=== PATIENT | female | born 1990 | race Caucasian/White ===

== ENCOUNTER 2017-08-30 21:58 | Inpatient (IN) | payer BC ==
[2017-08-31] MEDS ORDERED: Sodium Chloride 0.9% 2.5 ML Syringe FLUSH PRN (02:49)
[2017-08-31] MEDS ORDERED: Tranexamic Acid 1,000 MG in Sodium Chloride 0.9% 100 ML IV PRN (02:49)
[2017-08-31] MEDS ORDERED: Water For Irrigation,Sterile 1,000 ML Container IRR PRN (02:49)
[2017-08-31] MEDS ORDERED: Lidocaine 1% 50 ML MDV INJECT PRN (02:49)
[2017-08-31] MEDS ORDERED: Nalbuphine 10 MG/1 ML Vial IVPUSH PRN (02:49)
[2017-08-31] MEDS ORDERED: Misoprostol 200 MCG Tab PO PRN (02:49)
[2017-08-31] MEDS ORDERED: Carboprost Tromethamine 250 MCG/1 ML Amp IM PRN (02:49)
[2017-08-31] MEDS ORDERED: Sodium Chloride 0.9% 10 ML Syringe FLUSH PRN (02:49)
[2017-08-31] MEDS ORDERED: Butorphanol 1 MG/ML SDV IVPUSH PRN (02:49)
[2017-08-31] MEDS ORDERED: Methylergonovine 0.2 MG/1 ML Amp IM PRN (02:49)
[2017-08-31] MEDS ORDERED: Oxytocin/0.9 % Sodium Chloride 30 UNIT/500 ML BAG IV SCH (03:00)
[2017-08-31] MEDS ORDERED: Ampicillin 2 GM in Sodium Chloride 0.9% 100 ML IV ONE (03:00)
[2017-08-31] MEDS: Lactated Ringers 1,000 ML IV SCH ×3 (03:19→08:40)
[2017-08-31] MEDS: Ampicillin 1 GM in Sodium Chloride 0.9% 50 ML IV SCH ×2 (06:59→11:03)
[2017-08-31] MEDS ORDERED: Ampicillin 1 GM in Sodium Chloride 0.9% 50 ML IV SCH (07:00)
[2017-08-31] MEDS ORDERED: Ropivacaine 0.2% 2 MG/ML 20 ML SDV ONE (07:32)
--- NOTE | 2017-08-31 08:03 | PCM.PREANE ---
Preanesthetic Assessment - Procedure Proposed Procedure: labor epidural - Anesthesia/Transfusion/Family Hx Anesthesia History: No Prior Anesthesia Family History of Anesthesia Reaction: No Transfusion History: No Prior Transfusion(s) - Review of Systems Other: Reports: None - Physical Assessment Height: 5 ft 2.5 in Weight: 72.575 kg ASA Class: 2 Mental Status: Alert & Oriented x3 Airway Class: Mallampati = 1 Dentition: Reports: Normal Dentition Thyro-Mental Finger Breadths: 3 Mouth Opening Finger Breadths: 3 ROM/Head Extension: Full - Lab Values: Laboratory Last Values WBC 12.10 K/uL (4.0-11.0) H 08/31/17 03:05 RBC 3.74 M/uL (4.30-5.90) L 08/31/17 03:05 Hgb 11.3 g/dL (12.0-16.0) L 08/31/17 03:05 Hct 33.2 % (36.0-46.0) L 08/31/17 03:05 MCV 88.8 fL (80.0-98.0) 08/31/17 03:05 MCH 30.2 pg (27.0-32.0) 08/31/17 03:05 MCHC 34.0 g/dL (31.0-37.0) 08/31/17 03:05 RDW Std Deviation 40.0 fl (28.0-62.0) 08/31/17 03:05 RDW Coeff of [place]rais 13 % (11.0-15.0) 08/31/17 03:05 Plt Count 186 K/uL (150-400) 08/31/17 03:05 MPV 10.30 fL (7.40-12.00) 08/31/17 03:05 Urine Color YELLOW 08/30/17 23:10 Urine Appearance CLEAR 08/30/17 23:10 Urine pH 7.0 (5.0-8.0) 08/30/17 23:10 Ur Specific [place] <= 1.005 (1.001-1.035) 08/30/17 23:10 Urine Protein NEGATIVE mg/dL (NEGATIVE) 08/30/17 23:10 Urine Glucose (UA) NEGATIVE mg/dL (NEGATIVE) 08/30/17 23:10 Urine Ketones NEGATIVE mg/dL (NEGATIVE) 08/30/17 23:10 Urine Occult Blood NEGATIVE (NEGATIVE) 08/30/17 23:10 Urine Nitrite NEGATIVE (NEGATIVE) 08/30/17 23:10 Urine Bilirubin NEGATIVE (NEGATIVE) 08/30/17 23:10 Urine Urobilinogen 0.2 EU/dL (<2.0) 08/30/17 23:10 Ur Leukocyte Esterase NEGATIVE (NEGATIVE) 08/30/17 23:10 Blood Type O POSITIVE 08/31/17 03:05 Antibody Screen NEGATIVE 08/31/17 03:05 - Allergies Allergies/Adverse Reactions: Allergies Allergy/AdvReac Type Severity Reaction Status Date / Time No Known Allergies Allergy Verified 08/30/17 22:20 - Blood Blood Available: Yes Product(s) Available: PRBC - Acknowledgements Anesthesia Type Planned: Epidural Pt an Appropriate Candidate for the Planned Anesthesia: Yes Alternatives and Risks of Anesthesia Discussed w Pt/Guardian: Yes Pt/Guardian Understands and Agrees with Anesthesia Plan: Yes PreAnesthesia Questionnaire - Past Health History Medical/Surgical History: Denies Medical/Surgical History [employer] History: Reports: - SUBSTANCE USE Smoking Status *Q: Light Tobacco Smoker Tobacco Use Within Last Twelve Months: Cigarettes Second Hand Smoke Exposure: No Recreational Drug Use History: No - HOME MEDS Home Medications: Home Meds Vits #93/Iron Fum/FA [ Formula Tablet] 1 each PO 08/30/17 [ History] - CURRENT (IN HOUSE) MEDS Current Meds: Current Medications Butorphanol Tartrate (Stadol) 1 mg IVPUSH Q1H PRN PRN Reason: Pain Carboprost Tromethamine (Hemabate Ds) 250 mcg IM ASDIRECTED PRN PRN Reason: Post Hemorrhage Tranexamic Acid 1,000 mg/ (Sodium Chloride) 110 mls @ 660 mls/hr IV ONETIME PRN PRN Reason: Bleeding Lactated Ringer's (Ringers, Lactated) 1,000 mls @ 150 mls/hr IV ASDIRECTED DIANE Last Admin: 08/31/17 06:59 Dose: 150 mls/hr Oxytocin/Sodium Chloride (Oxytocin 30 Unit/500 Ml-Ns) 30 unit in 500 mls @ 999 mls/hr IV TITRATE [facility] Ampicillin Sodium 1 gm/ Sodium (Chloride) 50 mls @ 100 mls/hr IV Q4H [facility] Last Admin: 08/31/17 06:59 Dose: 100 mls/hr Lidocaine HCl (Xylocaine 1%) 50 ml INJECT .ONCE PRN PRN Reason: Laceration repair Methylergonovine Maleate (Methergine) 0.2 mg IM ASDIRECTED PRN PRN Reason: Post Hemorrhage Misoprostol (Cytotec) 200 mcg PO .ONCE PRN PRN Reason: Post Hemorrhage Nalbuphine HCl (Nubain) 10 mg IVPUSH Q1H PRN PRN Reason: Pain (severe 7-10) Sodium Chloride (Saline Flush) 10 ml FLUSH ASDIRECTED PRN PRN Reason: Keep Vein Open Sodium Chloride (Saline Flush) 2.5 ml FLUSH ASDIRECTED PRN PRN Reason: Keep Vein Open Sterile Water (Sterile Water For Irrigation) 1,000 ml IRR ASDIRECTED PRN PRN Reason: delivery Discontinued Medications Ampicillin Sodium 2 gm/ Sodium (Chloride) 100 mls @ 200 mls/hr IV ONETIME ONE Stop: 08/31/17 03:29 Last Admin: 08/31/17 03:19 Dose: 200 mls/hr Ampicillin Sodium 1 gm/ Sodium (Chloride) 50 mls @ 100 mls/hr IV Q4H DIANE Fentanyl/Bupivacaine HCl ([id number]-[id number] 2 Mcg/Ml-0.125%) Confirm Administered Dose 100 mls @ as directed EP .STK-MED ONE Stop: 08/31/17 07:33 Ropivacaine (Naropin 0.2%) Confirm Administered Dose 20 ml .ROUTE .STK-MED ONE Stop: 08/31/17 07:33
[2017-08-31] MEDS ORDERED: oxyCODONE 5 MG Tab PO PRN (14:26)
[2017-08-31] MEDS ORDERED: Witch Hazel Medicated Pads 40/Jar TOP PRN (14:26)
[2017-08-31] MEDS ORDERED: Bisacodyl 10 MG Supp RECTAL PRN (14:26)
[2017-08-31] MEDS ORDERED: Ibuprofen 400 MG Tab PO PRN (14:26)
[2017-08-31] MEDS ORDERED: Benzocaine/Menthol 20%-0.5% Spray 78 GM Cannister TOP PRN (14:26)
[2017-08-31] MEDS ORDERED: Lanolin 100% Cream 7 GM Tube TOP PRN (14:26)
[2017-08-31] MEDS ORDERED: Docusate Sodium 100 MG Cap PO PRN (14:26)
[2017-08-31] MEDS ORDERED: Acetaminophen 500 MG Tab PO PRN ×2 (14:26)
--- NOTE | 2017-08-31 14:31 | PCM.DEL ---
L & D Note - General Info Date of Service: 08/31/17 - Delivery Note Labor: Spontaneous, Augmented by ARM Delivery Outcome: Livebirth Infant Delivery Mode: Spontaneous Presentation: Left Occiput Anterior (SANTANA) Nuchal Cord: Present, Reduced Prep: Other Anesthesia Type: Epidural Episiotomy Type: None Laceration: None Placenta: Intact, Spontaneous Cord: 3 Vessels Estimated Blood Loss: 150 Resuscitation Needed: No [place]: Warmed Score 1 min: 8 Score 5 min: 9 Second Stage Interventions: Reports: Encouragement Given, Pushing Effectively, Pushing, Feet in Foot Rests, Pushing, Pulls Own Legs Back - General Info Date of Service: 08/31/17 - Patient Data Weight - Most Recent: 160 lb Lab Results Last 24 Hours: Laboratory Results - last 24 hr 08/30/17 08/31/17 08/31/17 Range/Units 23:10 03:05 03:05 WBC 12.10 H (4.0-11.0) K/uL RBC 3.74 L (4.30-5.90) M/uL Hgb 11.3 L (12.0-16.0) g/dL Hct 33.2 L (36.0-46.0) % MCV 88.8 (80.0-98.0) fL MCH 30.2 (27.0-32.0) pg MCHC 34.0 (31.0-37.0) g/dL RDW Std Deviation 40.0 (28.0-62.0) fl RDW Coeff of [place]aris 13 (11.0-15.0) % Plt Count 186 (150-400) K/uL MPV 10.30 (7.40-12.00) fL Urine Color YELLOW Urine Appearance CLEAR Urine pH 7.0 (5.0-8.0) Ur Specific [place] <= 1.005 (1.001-1.035) Urine Protein NEGATIVE (NEGATIVE) mg/dL Urine Glucose (UA) NEGATIVE (NEGATIVE) mg/dL Urine Ketones NEGATIVE (NEGATIVE) mg/dL Urine Occult Blood NEGATIVE (NEGATIVE) Urine Nitrite NEGATIVE (NEGATIVE) Urine Bilirubin NEGATIVE (NEGATIVE) Urine Urobilinogen 0.2 (<2.0) EU/dL Ur Leukocyte Esterase NEGATIVE (NEGATIVE) Blood Type O POSITIVE Antibody Screen NEGATIVE Med Orders - Current: Current Medications Discontinued Medications Butorphanol Tartrate (Stadol) 1 mg IVPUSH Q1H PRN PRN Reason: Pain Carboprost Tromethamine (Hemabate Ds) 250 mcg IM ASDIRECTED PRN PRN Reason: Post Hemorrhage Tranexamic Acid 1,000 mg/ (Sodium Chloride) 110 mls @ 660 mls/hr IV ONETIME PRN PRN Reason: Bleeding Ampicillin Sodium 2 gm/ Sodium (Chloride) 100 mls @ 200 mls/hr IV ONETIME ONE Stop: 08/31/17 03:29 Last Admin: 08/31/17 03:19 Dose: 200 mls/hr Lactated Ringer's (Ringers, Lactated) 1,000 mls @ 150 mls/hr IV ASDIRECTED DIANE Last Admin: 08/31/17 08:40 Dose: 150 mls/hr Oxytocin/Sodium Chloride (Oxytocin 30 Unit/500 Ml-Ns) 30 unit in 500 mls @ 999 mls/hr IV TITRATE [facility] Ampicillin Sodium 1 gm/ Sodium (Chloride) 50 mls @ 100 mls/hr IV Q4H [facility] Last Admin: 08/31/17 11:03 Dose: 100 mls/hr Ampicillin Sodium 1 gm/ Sodium (Chloride) 50 mls @ 100 mls/hr IV Q4H [facility] Fentanyl/Bupivacaine HCl ([id number]-Lijlx-Mc 2 Mcg/Ml-0.125%) Confirm Administered Dose 100 mls @ as directed EP .STK-MED ONE Stop: 08/31/17 07:33 Lidocaine HCl (Xylocaine 1%) 50 ml INJECT .ONCE PRN PRN Reason: Laceration repair Methylergonovine Maleate (Methergine) 0.2 mg IM ASDIRECTED PRN PRN Reason: Post Hemorrhage Misoprostol (Cytotec) 200 mcg PO .ONCE PRN PRN Reason: Post Hemorrhage Nalbuphine HCl (Nubain) 10 mg IVPUSH Q1H PRN PRN Reason: Pain (severe 7-10) Ropivacaine (Naropin 0.2%) Confirm Administered Dose 20 ml .ROUTE .STK-MED ONE Stop: 08/31/17 07:33 Sodium Chloride (Saline Flush) 10 ml FLUSH ASDIRECTED PRN PRN Reason: Keep Vein Open Sodium Chloride (Saline Flush) 2.5 ml FLUSH ASDIRECTED PRN PRN Reason: Keep Vein Open Sterile Water (Sterile Water For Irrigation) 1,000 ml IRR ASDIRECTED PRN PRN Reason: delivery - Problem List & Annotations (1) Vaginal delivery SNOMED Code(s): 702506593 Code(s): O80 - ENCOUNTER FOR FULL-TERM UNCOMPLICATED DELIVERY Status: Acute Current Visit: No - Problem List Review Problem List Initiated/Reviewed/Updated: Yes - My Orders Last 24 Hours: My Active Orders 08/31/17 14:13 BLOOD GAS ARTERIAL UMBILICAL [BG] Timed BLOOD GAS VENOUS UMBILICAL [BG] Timed 08/31/17 14:26 Patient Status [ADT] Routine May Shower [RC] ASDIRECTED Up ad Anne-Marie [RC] ASDIRECTED Vital Signs [RC] PER UNIT ROUTINE Acetaminophen [Tylenol Extra Strength] 1,000 mg PO Q4H PRN Acetaminophen [Tylenol Extra Strength] 500 mg PO Q4H PRN Benzocaine/Menthol [Dermoplast Pain Relief 20%-0.5% [place]] 78 gm TOP ASDIRECTED PRN Bisacodyl [Dulcolax] 10 mg RECTAL .ONCE PRN Docusate Sodium [Colace] 100 mg PO BID PRN Ibuprofen [Motrin] 400 mg PO Q4H PRN Ibuprofen [Motrin] 800 mg PO Q6H PRN Lanolin [Lansinoh HPA] See Dose Instructions TOP ASDIRECTED PRN Witch Eduarda [Tucks] 1 pad TOP ASDIRECTED PRN oxyCODONE 5 mg PO Q2H PRN Assess Lochia [WOMSER] Per Unit Routine Assess Uterine Involution [WOMSER] Per Unit Routine Breast Pump [WOMSER] Per Unit Routine Peripheral IV Discontinue [OM.PC] Routine Resuscitation Status Routine 08/31/17 14:27 Perineal Care [OM.PC] Per Unit Routine 08/31/17 Dinner Regular Diet [DIET] 09/01/17 05:11 HEMOGLOBIN/HEMATOCRIT,HH [HEME] Timed
[2017-08-31] MEDS: Ibuprofen 800 MG Tab PO PRN (15:23)
--- NOTE | 2017-08-31 18:01 | OR ---
SURGEON: Marcelina Vinson MD DATE OF PROCEDURE: 08/31/2017 PREOPERATIVE DIAGNOSES: 1. Term at 40 weeks and 3 days gestation. 2. Spontaneous labor. POSTOPERATIVE DIAGNOSES: 1. Term at 40 weeks and 3 days gestation. 2. Spontaneous labor. 3. Delivered. PROCEDURE: Spontaneous vaginal delivery. ANESTHESIA: Epidural. ESTIMATED BLOOD LOSS: 150 mL. COMPLICATIONS: None. DISPOSITION: Mother and baby stable in Labor and delivery room, bonding. FINDINGS: Female infant, weight 4470 g, score 8 and 9 at 1 and 5 minutes respectively. Grossly normal placenta with three-vessel cord. Intact perineum. BRIEF HISTORY: The patient is a 26-year-old G5, P4-0-0-4, who presented overnight in early labor. On examination at about 10:00 p.m. last night, she was 3 to 4 cm dilated, 70% effaced, and -3 station. Niya irregularly. Throughout the night, she then made steady progress received epidural for pain management. After receiving her second dose of ampicillin for GBS prophylaxis, artificial rupture of membranes was performed this morning at about 11:00 a.m. At that time, she was 7 cm dilated, 90% effaced, 0 station with clear amniotic fluid was noted. Thereafter, she progressed to full dilatation and commenced active pushing. heart tracing remained category 1. DESCRIPTION OF PROCEDURE: She had a spontaneous vaginal delivery of a live female infant in left occipital anterior position, loose nuchal cord easily reduced, clear amniotic fluid at delivery. Anterior and posterior shoulder and the rest of the baby were delivered without difficulty. The baby was vigorous and cried spontaneously at . Baby was delivered onto the maternal abdomen. Delayed cord clamping was observed and the cord was subsequently cut. With delivery of the , oxytocin infusion, titration was commenced for active management of third stage of labor. Cord blood and gas samples were obtained. The placenta was delivered by controlled cord traction, appeared to be complete and intact. Examination of the perineum revealed no lacerations. Uterine massage was performed. The uterus was found to be well contracted below the umbilicus. The patient tolerated the procedure well. Sponge, instrument, and needle counts were correct at the end of the delivery. ADUMVIV / MODL /[id number] [facility]
--- NOTE | 2017-08-31 18:39 | PCM48HPAN ---
Post Anesthesia Note - EVALUATION WITHIN 48HRS OF ANESTHETIC Vital Signs in Normal Range: Yes Patient Participated in Evaluation: Yes Respiratory Function Stable: Yes Airway Patent: Yes Cardiovascular Function Stable: Yes Hydration Status Stable: Yes Pain Control Satisfactory: Yes Nausea and Vomiting Control Satisfactory: Yes Mental Status Recovered: Yes
[2017-09-01] MEDS: Ibuprofen 800 MG Tab PO PRN (06:09)
--- NOTE | 2017-09-01 07:16 | PCM.PNPP ---
- General Info Date of Service: 09/01/17 Functional Status: Reports: Pain Controlled, Tolerating Diet, Ambulating, Urinating - Review of Systems General: Denies: Fever HEENT: Denies: Headaches Pulmonary: Denies: Shortness of Breath, Pleuritic Chest Pain, Cough Cardiovascular: Denies: Chest Pain, Palpitations, Dyspnea on Exertion Gastrointestinal: Denies: Abdominal Pain Genitourinary: Denies: Dysuria, Burning, Incontinence, Retention - General Info Date of Service: 09/01/17 - Patient Data Vital Signs - Most Recent: Last Vital Signs Temp 36.9 C 08/31/17 20:00 Pulse 77 08/31/17 20:00 Resp 16 08/31/17 20:00 BP 104/60 08/31/17 20:00 Pulse Ox 100 08/31/17 20:00 Weight - Most Recent: 160 lb Lab Results - Last 24 Hours: Laboratory Results - last 24 hr 08/31/17 09/01/17 Range/Units 14:11 05:15 Hgb 10.7 L (12.0-16.0) g/dL Hct 31.5 L (36.0-46.0) % Cord ABG pH 7.297 (7.18-7.38) Cord ABG Base Excess -3 (-10--2) Cord VBG pH 7.380 (7.25-7.45) Cord VBG Base Excess -3 (-10--2) Med Orders - Current: Current Medications Acetaminophen (Tylenol Extra Strength) 500 mg PO Q4H PRN PRN Reason: Pain Acetaminophen (Tylenol Extra Strength) 1,000 mg PO Q4H PRN PRN Reason: Pain Benzocaine/Menthol (Dermoplast Pain Relief 20%-0.5% [place]) 78 gm TOP ASDIRECTED PRN PRN Reason: Perineal Comfort Measure Last Admin: 08/31/17 15:22 Dose: 1 can Bisacodyl (Dulcolax) 10 mg RECTAL .ONCE PRN PRN Reason: Constipation Docusate Sodium (Colace) 100 mg PO BID PRN PRN Reason: Constipation Emollient Ointment (Lansinoh Hpa) 0 gm TOP ASDIRECTED PRN PRN Reason: Sore Nipples Ibuprofen (Motrin) 400 mg PO Q4H PRN PRN Reason: Pain Ibuprofen (Motrin) 800 mg PO Q6H PRN PRN Reason: Pain Last Admin: 09/01/17 06:09 Dose: 800 mg Oxycodone HCl (Oxycodone) 5 mg PO Q2H PRN PRN Reason: Pain Witch Eduarda (Tucks) 1 pad TOP ASDIRECTED PRN PRN Reason: comfort care Last Admin: 08/31/17 15:22 Dose: 1 tub Discontinued Medications Butorphanol Tartrate (Stadol) 1 mg IVPUSH Q1H PRN PRN Reason: Pain Carboprost Tromethamine (Hemabate Ds) 250 mcg IM ASDIRECTED PRN PRN Reason: Post Hemorrhage Tranexamic Acid 1,000 mg/ (Sodium Chloride) 110 mls @ 660 mls/hr IV ONETIME PRN PRN Reason: Bleeding Ampicillin Sodium 2 gm/ Sodium (Chloride) 100 mls @ 200 mls/hr IV ONETIME ONE Stop: 08/31/17 03:29 Last Admin: 08/31/17 03:19 Dose: 200 mls/hr Lactated Ringer's (Ringers, Lactated) 1,000 mls @ 150 mls/hr IV ASDIRECTED DIANE Last Admin: 08/31/17 08:40 Dose: 150 mls/hr Oxytocin/Sodium Chloride (Oxytocin 30 Unit/500 Ml-Ns) 30 unit in 500 mls @ 999 mls/hr IV TITRATE [facility] Ampicillin Sodium 1 gm/ Sodium (Chloride) 50 mls @ 100 mls/hr IV Q4H [facility] Last Admin: 08/31/17 11:03 Dose: 100 mls/hr Ampicillin Sodium 1 gm/ Sodium (Chloride) 50 mls @ 100 mls/hr IV Q4H [facility] Fentanyl/Bupivacaine HCl (Ivqjxqtk-Kseqp-Wk 2 Mcg/Ml-0.125%) Confirm Administered Dose 100 mls @ as directed EP .STK-MED ONE Stop: 08/31/17 07:33 Lidocaine HCl (Xylocaine 1%) 50 ml INJECT .ONCE PRN PRN Reason: Laceration repair Methylergonovine Maleate (Methergine) 0.2 mg IM ASDIRECTED PRN PRN Reason: Post Hemorrhage Misoprostol (Cytotec) 200 mcg PO .ONCE PRN PRN Reason: Post Hemorrhage Nalbuphine HCl (Nubain) 10 mg IVPUSH Q1H PRN PRN Reason: Pain (severe 7-10) Ropivacaine (Naropin 0.2%) Confirm Administered Dose 20 ml .ROUTE .STK-MED ONE Stop: 08/31/17 07:33 Sodium Chloride (Saline Flush) 10 ml FLUSH ASDIRECTED PRN PRN Reason: Keep Vein Open Sodium Chloride (Saline Flush) 2.5 ml FLUSH ASDIRECTED PRN PRN Reason: Keep Vein Open Sterile Water (Sterile Water For Irrigation) 1,000 ml IRR ASDIRECTED PRN PRN Reason: delivery - Interaction Infant Disposition, : in Room with Family Infant Feeding: Breastfed Infant; Nursed Well Support Person: - Recovery Exam Fundal Tone: Firm Fundal Level: At Umbilicus Fundal Placement: Midline Lochia Amount: Scant Lochia Color: Rubra/Red Bladder Status: Voiding - Exam General: Alert, Oriented Lungs: Clear to Auscultation, Normal Respiratory Effort Cardiovascular: Regular Rate, Regular Rhythm GI/Abdominal Exam: Normal Bowel Sounds Extremities: Non-Tender, Pedal Edema Skin: Warm Psy/Mental Status: Alert, Normal Affect, Normal Mood - Problem List & Annotations (1) Vaginal delivery SNOMED Code(s): 697590349 Code(s): O80 - ENCOUNTER FOR FULL-TERM UNCOMPLICATED DELIVERY Status: Acute Current Visit: No - Problem List Review Problem List Initiated/Reviewed/Updated: Yes - My Orders Last 24 Hours: My Active Orders 08/31/17 14:26 Patient Status [ADT] Routine May Shower [RC] ASDIRECTED Up ad Anne-Marie [RC] ASDIRECTED Vital Signs [RC] PER UNIT ROUTINE Acetaminophen [Tylenol Extra Strength] 1,000 mg PO Q4H PRN Acetaminophen [Tylenol Extra Strength] 500 mg PO Q4H PRN Benzocaine/Menthol [Dermoplast Pain Relief 20%-0.5% [place]] 78 gm TOP ASDIRECTED PRN Bisacodyl [Dulcolax] 10 mg RECTAL .ONCE PRN Docusate Sodium [Colace] 100 mg PO BID PRN Ibuprofen [Motrin] 400 mg PO Q4H PRN Ibuprofen [Motrin] 800 mg PO Q6H PRN Lanolin [Lansinoh HPA] See Dose Instructions TOP ASDIRECTED PRN Witch Eduarda [Tucks] 1 pad TOP ASDIRECTED PRN oxyCODONE 5 mg PO Q2H PRN Assess Lochia [WOMSER] Per Unit Routine Assess Uterine Involution [WOMSER] Per Unit Routine Breast Pump [WOMSER] Per Unit Routine Peripheral IV Discontinue [OM.PC] Routine Resuscitation Status Routine 08/31/17 14:27 Perineal Care [OM.PC] Per Unit Routine 08/31/17 Dinner Regular Diet [DIET] - Assessment Assessment:: PPD#1 s/p , stable and afebrile Clinically stable for discharge - Plan Plan:: Discharge instructions reviewed Nothing in the vagina in 6 weeks Continue PNV and Iron supplements Use OTC pain meds PRN Bleeding and infection precautions reviewed S/S of blues vs depression reviewed Follow up in the clinic in 6 weeks
[2017-09-01 08:19] VITALS: BP 110/74
== END 2017-09-01 16:40 | disposition home or self-care (01) | DRG 560 ==
LOC: MW.OBCHECK 21:58 → MW.OB 22:01 → MW.OBCHECK 08-31 02:49 → MW.OB 08-31 02:49 → OBSVTOIN 08-31 02:49 → MW.OB 08-31 13:09
PROVIDERS: ADMIT Obstetrics & Gynecology; ATTEND Obstetrics & Gynecology
PROC: 10E0XZZ Delivery of Products of Conception, External Approach (ICD-10-PCS; principal; 2017-08-31)
PROC: 10907ZC Drainage of Amniotic Fluid, Therapeutic from Products of Conception, Via Natural or Artificial Opening (ICD-10-PCS; 2017-08-31)
PROC: 3E0S3GC Introduction of Other Therapeutic Substance into Epidural Space, Percutaneous Approach (ICD-10-PCS; 2017-08-31)
DX: O99.824 Streptococcus B carrier state complicating childbirth (principal); Z3A.40 40 weeks gestation of pregnancy; Z37.0 Single live birth; O99.334 Smoking (tobacco) complicating childbirth; F17.210 Nicotine dependence, cigarettes, uncomplicated; Z87.59 Personal history of other complications of pregnancy, childbirth and the puerperium
CPT/HCPCS: 36415; 59025; 59409; 81003; 82803; 85014; 85018; 85027; 86850; 86900; 86901; A9270-GY; J0290; J2795; J7030; J7050; J7120

== ENCOUNTER 2021-04-06 13:09 | Inpatient (IN) | payer BC ==
[2021-04-06] MEDS ORDERED: Tranexamic Acid 1,000 MG in Sodium Chloride 0.9% 100 ML IV PRN (18:05)
[2021-04-06] MEDS ORDERED: Sodium Chloride 0.9% 2.5 ML Syringe FLUSH PRN (18:05)
[2021-04-06] MEDS ORDERED: Methylergonovine 0.2 MG/1 ML Amp IM PRN (18:05)
[2021-04-06] MEDS ORDERED: Water For Irrigation,Sterile 1,000 ML Container IRR PRN (18:05)
[2021-04-06] MEDS ORDERED: Carboprost Tromethamine 250 MCG/1 ML Amp IM PRN (18:05)
[2021-04-06] MEDS ORDERED: Sodium Chloride 0.9% 20 ML SDV IV PRN (18:05)
[2021-04-06] MEDS ORDERED: Misoprostol 200 MCG Tab PO PRN (18:05)
[2021-04-06] MEDS ORDERED: Sodium Chloride 0.9% 10 ML Syringe FLUSH PRN (18:05)
[2021-04-06] MEDS ORDERED: Nalbuphine 10 MG/1 ML Vial IVPUSH PRN (18:05)
[2021-04-06] MEDS ORDERED: Lidocaine 1% 50 ML MDV INJECT PRN (18:05)
[2021-04-06] MEDS ORDERED: Butorphanol 1 MG/ML SDV IVPUSH PRN (18:05)
[2021-04-06] MEDS ORDERED: Oxytocin/0.9 % Sodium Chloride 30 UNIT/500 ML BAG IV SCH (18:15)
[2021-04-06] MEDS ORDERED: Lactated Ringers 1,000 ML IV SCH (18:15)
[2021-04-06] MEDS ORDERED: oxyCODONE 5 MG Tab PO PRN (21:55)
[2021-04-06] MEDS ORDERED: Bisacodyl 10 MG Supp RECTAL PRN (21:55)
[2021-04-06] MEDS ORDERED: Aluminum Hydroxide/Magnesium Hydroxide/Simethicone XS Susp 30 ML Cup PO PRN (21:55)
[2021-04-06] MEDS ORDERED: Benzocaine/Menthol 20%-0.5% Spray 78 GM Cannister TOP PRN (21:55)
[2021-04-06] MEDS ORDERED: Docusate Sodium 100 MG Cap PO PRN (21:55)
[2021-04-06] MEDS ORDERED: Acetaminophen 500 MG Tab PO PRN ×2 (21:55)
[2021-04-06] MEDS ORDERED: Lanolin 100% Cream 7 GM Tube TOP PRN (21:55)
[2021-04-06] MEDS ORDERED: Ibuprofen 400 MG Tab PO PRN (21:55)
[2021-04-06] MEDS ORDERED: Witch Hazel Medicated Pads 40/Jar TOP PRN (21:55)
[2021-04-06] MEDS: Ibuprofen 800 MG Tab PO PRN (23:34)
[2021-04-07] MEDS: Ibuprofen 800 MG Tab PO PRN (07:30)
[2021-04-07 19:59] VITALS: BP 112/74; PULSE 71
== END 2021-04-07 23:24 | disposition home or self-care (01) | DRG 560 ==
LOC: MW.OBCHECK 13:09 → MW.OB 18:05 → OBSVTOIN 21:38 → MW.OB 23:29
PROVIDERS: ADMIT Obstetrics & Gynecology; ATTEND Obstetrics & Gynecology
PROC: 10E0XZZ Delivery of Products of Conception, External Approach (ICD-10-PCS; principal; 2021-04-06)
DX: O48.0 Post-term pregnancy (principal); Z37.0 Single live birth; O77.0 Labor and delivery complicated by meconium in amniotic fluid; Z20.822 Contact with and (suspected) exposure to COVID-19; Z3A.41 41 weeks gestation of pregnancy
CPT/HCPCS: 36415; 82803; 85014; 85018; 85027; 86592; 86850; 86900; 86901; A9270-GY; J2590; U0002